=== PATIENT | male | born 1980 | race Caucasian/White ===

== ENCOUNTER 2024-11-26 16:31 | Emergency (ER) | payer MEDICAID ==
[~2024-11-26] VITALS: Ht 193 cm; Wt 140.0 kg
[2024-11-26 16:33] VITALS: O2SAT 96
[2024-11-26] MEDS: NIFEDIPINE XL 60MG TAB PO ONE (17:04)
[2024-11-26 17:05] VITALS: TEMP 36.9
[2024-11-26 17:35] LABS: BASOPHILS % 0.5 % (0.0-2.0); DIFFERENTIAL COMMENT 0; EOSINOPHILS % 1.6 % (0.0-5.0); HEMATOCRIT. 50.5 % (42.0-52.0); HEMOGLOBIN. 17.8 g/dL (14.0-18.0); LYMPHOCYTES % 17.7 % (20.0-50.0); MEAN CORPUSCULAR HEMOGLOBIN 29.8 pg (28.0-32.0); MEAN CORPUSCULAR HGB CONC 35.3 g/dL (31.0-37.0); MEAN CORPUSCULAR VOLUME 84.4 fL (80.0-94.0); MEAN PLATELET VOLUME 9.4 fl (7.4-10.4); NEUTROPHILS % 73.2 % (40.0-76.0); PLATELET 218 x1000/uL (130-400); RED BLOOD CELL COUNT 5.99 mill/uL (4.7-6.1); RED CELL DISTRIBUTION WIDTH 13.4 % (11.6-14.6); WHITE BLOOD COUNT 7.1 x1000/uL (4.5-11.0)
[2024-11-26 17:47] LABS: CHLORIDE 102 mEq/L (98-107); POTASSIUM 3.6 mEq/L (3.5-5.1); SODIUM 140 mEq/L (136-145)
[2024-11-26 17:48] LABS: CARBON DIOXIDE 27 mEq/L (21-32)
[2024-11-26 17:49] LABS: CALCIUM 9.7 mg/dL (8.7-10.4)
[2024-11-26 17:53] LABS: CREATININE 1.1 mg/dL (0.6-1.3); GLUCOSE 105 mg/dL (70-105); UREA NITROGEN BLOOD 11 mg/dL (9-23)
[2024-11-26 17:54] LABS: TROPONIN I HIGH SENSITIVITY 13 ng/L (3.0-53)
[2024-11-26] MEDS ORDERED: NIFE-32 MT (18:15)
[2024-11-26] MEDS ORDERED: HYDR25TA MT (18:16)
[2024-11-26 18:40] VITALS: BP 238/155; PULSE 88; RESP 14; O2SAT 97
== END 2024-11-26 18:50 | disposition home or self-care (01) ==
LOC: ER 16:31
DX: I10 Essential (primary) hypertension (principal); F32.A Depression, unspecified; Z79.899 Other long term (current) drug therapy
CPT/HCPCS: 80048; 83880; 85025; 84484; 36415; 71045; 70450; 93005; 99285; Z7610 ×2; A4606